=== PATIENT | female | born 1985 | race Caucasian/White ===

== ENCOUNTER 2016-11-17 08:28 | Inpatient (IN) | payer OTHER ==
[2016-11-17] VITALS (10 sets, daily range): BP systolic 107–126; BP diastolic 53–78
[~2016-11-17] VITALS: Ht 162.6 cm; Wt 80.0 kg
[2016-11-17] MEDS ORDERED: PRENTAB9 PO (08:33)
[2016-11-17] MEDS ORDERED: LACTATED RINGER'S 1000 ML IV STA (09:32)
[2016-11-17 10:00] LABS: MEAN CORPUSCULAR HEMOGLOBIN 32.8 pg (27.0-33.0); MEAN CORPUSCULAR HGB CONC 35.4 g/dl (32.0-36.5); MEAN CORPUSCULAR VOLUME 92.4 fl (80.0-96.0); WHITE BLOOD COUNT 16.6 K/mm3 (4.0-10.0)
--- NOTE | 2016-11-17 10:02 | HPEPDOC ---
Obstetrical History & Physical General Date of Admission November 17, 2016 at 08:28 History of Present Illness 31 y/o at 41+2 with reg ctx's last 3-4 hrs. No LOF or signif VB. Pos FM throughout. Chief Complaint: Contractions, term Information Provided By: Patient Care Care: Good Care Dating Final EDC by: LMP, 1st trimester (US), 2nd trimester (US) Antepartum Course Diagnos(e)s rh neg, rhogam received JUL Past Medical History Past Obstetrical History : Past Obstetrical History: Multigravida Type of Delivery: Spontaneous Vaginal Del. Sex of : Female (7 lb 9 oz) [employer] History: No pertinent history Past Medical History Medical History PP depression, stable now and throughout Surgical History: [place] teeth Family History Significant Family History: No pertinent family hx Social History Marital Status: Family situation: Spouse/partner home Psychosocial History: No pertinent psych hx * Smoker: non-smoker Alcohol: Denies Drugs: denies Abuse Violence Screening Have you been hit/kicked/slapp: No Have you been sexually assault: No Imunizations Tdap status: current Influenza Status: current Allergies Coded Allergies: No Known Allergies (Unverified , 11/17/16) Medications Scheduled Multivitamins/ ( 27-0.8 mg) 1 Tab Tab, 1 TAB PO DAILY Physical Examination Physical Examination GENERAL: Alert and oriented times three. BREAST: . ABDOMEN: Gravid and non-tender to touch. EFW 3200 gm FETUS:vertex (VTX) by sterile vaginal examination, 6/90/0, well applied EXTREMITIES: No edema. Vital Signs/I&O Vital Signs Date Time Temp Pulse Resp B/P (MAP) Pulse Ox O2 Delivery O2 Flow Rate FiO2 11/17/16 08:42 98.4 93 20 118/72 (87) Laboratory Data 24H LABS Laboratory Tests 2 11/17/16 08:35: Serology Scanned Report Hepatitis B Testing Urine Culture: No Growth Pertinent Laboratoy Data Blood Type: A- RBC Antibody Screen: Negative HIV: Negative Hepatitis B: Negative Hepatitis C: Unknown Rapid Plasma Reagin: Nonreactive Rubella: Immune Varicella: Immune Chlamydia/Gonorrhea: Negative Group B Streptococcus: Negative Quad Screen Test: Unknown (Neg [place], Neg MSAFP) Cystic Fibrosis: Negative Anatomy Ultrasound Placenta Location: Anterior Normal Anatomy: Yes Placenta Previa: No Estimated Weight (grams): 3200 Vaginal Examination Dilation: 6 cm Effacement: 80+% Station: 0 Cervical Consistency: Soft Cervical Position: Anterior Presentation: Cephalic presentation Assessment Variability: Moderate Accelerations: Positive Decelerations: None Tocometer Contractions: Yes Frequency: regular Duration: greater than 60 seconds Assessment/Plan Assessment Active labor at 41+2 Plan Admit and orient. Supervisor Core Drilling and consent. Diet: clears Group B Streptococcus (GBS) neg Labs and intravenous (IV) per unit protocol. Lactated Ringers (LR): Bolus 500 ml Anticipate normal spontaneous delivery () C-S as appropriate. SESSIONS,ELI Melgar MD November 17, 2016 10:02
--- NOTE | 2016-11-17 12:51 | IPNPDOC ---
Text Note Date of Service The patient was seen on 11/17/16. NOTE Pain controlled well, no epidural NST Cat 1, int't Cx 8-9/C/0, well applied, BBOW, desires no AROM yet recheck 2 hrs, sooner prn Sessions VS,Rosalee, I+O VS, [place], I+O Laboratory Tests 11/17/16 09:49 Red Blood Count 3.85 L, Mean Corpuscular Volume 92.4, Mean Corpuscular Hemoglobin 32.8, Mean Corpuscular Hemoglobin Concent 35.4, Red Cell Distribution Width 13.0 Vital Signs Date Time Temp Pulse Resp B/P (MAP) Pulse Ox O2 Delivery O2 Flow Rate FiO2 11/17/16 08:42 98.4 93 20 118/72 (87) SESSIONS,ELI Melgar MD November 17, 2016 12:51
--- NOTE | 2016-11-17 15:21 | IPNPDOC ---
Text Note Date of Service The patient was seen on 11/17/16. NOTE Pain controlled well, no epidural, feeling pressure NST Cat 1 Cx 9/C/+1, well applied, AROM w clr fluid recheck 2 hrs, sooner prn Sessions VS,Rosalee, I+O VS, [place], I+O Laboratory Tests 11/17/16 09:49 Red Blood Count 3.85 L, Mean Corpuscular Volume 92.4, Mean Corpuscular Hemoglobin 32.8, Mean Corpuscular Hemoglobin Concent 35.4, Red Cell Distribution Width 13.0 Vital Signs Date Time Temp Pulse Resp B/P (MAP) Pulse Ox O2 Delivery O2 Flow Rate FiO2 11/17/16 08:42 98.4 93 20 118/72 (87) SESSIONS,ELI Melgar MD November 17, 2016 15:21
[2016-11-17] MEDS ORDERED: OXYTOCIN 30 UNITS IN 0.9% NaCl 500ML IV BAG (J2590) As Ordered ONE (15:28)
[2016-11-17] MEDS ORDERED: OXYTOCIN DRIP 30 UNITS in APPROPRIATE DILUENT 1 EA IV SCH (17:24)
[2016-11-17] MEDS ORDERED: ACETAMINOPHEN TAB 650MG DOSE (2X325MG) PO PRN (17:30)
[2016-11-17] MEDS ORDERED: RHOGAM 300 MCG (1500 IU) INJ (J2790) IM SCH (17:30)
[2016-11-17] MEDS ORDERED: METOCLOPRAMIDE INJ 10MG/2ML VIAL (J2765) IV PRN (17:30)
[2016-11-17] MEDS ORDERED: DIBUCAINE 1% OINTMENT 30GM TOP PRN (17:30)
[2016-11-17] MEDS ORDERED: MEASLES,MUMPS,RUBELLA VACCINE INJ (MMR-II) (90707) SC SCH (17:30)
[2016-11-17] MEDS ORDERED: LIDOCAINE 1% MDV INJ 50 ML VIAL SC ONE (17:30)
[2016-11-17] MEDS: IBUPROFEN 800 MG TAB PO PRN (17:59)
--- NOTE | 2016-11-17 18:29 | DNPDOC ---
[facility] Delivery Note Delivery Note DATE OF DELIVERY: November 17, 2016 at 08:28 PREDELIVERY DIAGNOSIS: 41 2/7 weeks' gestation and labor. POST DELIVERY DIAGNOSIS: Delivered. PROCEDURE: Spontaneous vaginal delivery FOUR H AGENT: Dr. Maza ANESTHESIA: none ESTIMATED BLOOD LOSS: 300 mL. FINDINGS: 4142gm, 9 pound 2ounce male infant, Score 9/9 DELIVERY SUMMARY: Hands and knees, crowned, excellent effort, no delay of the vtx or the ant/post shoulder. Good tone and cry. Mother to back, infant to abdomen. When cord stopped pulsing, C/C by FOB. Cord blood. Placenta intact with slight traction and fundal massage. Small skin only 1st degr perineal lac repaired with 3-0 vicryl. Good cosmesis/hemostasis. Uncomplicated. ELI MAZA MD November 17, 2016 18:29
[2016-11-17] MEDS: DOCUSATE SODIUM 100 MG CAP PO SCH (21:18)
[2016-11-18 06:47] VITALS: BP 107/60
--- NOTE | 2016-11-18 07:03 | IPNPDOC ---
Text Note Date of Service The patient was seen on 11/18/16. NOTE PPD1 prog note States feeling well, no complaints. No heavy VB. Pain controlled. Voiding, ambulatory. Bonding well and brst feeding. VSSAF CTAB RRR Ut at U-2, firm Ext no CCE a/p: Doing well. Likely d/c tomorrow AM Sessions VS,Rosalee, I+O VS, [place] I+O Laboratory Tests 11/17/16 09:49 Red Blood Count 3.85 L, Mean Corpuscular Volume 92.4, Mean Corpuscular Hemoglobin 32.8, Mean Corpuscular Hemoglobin Concent 35.4, Red Cell Distribution Width 13.0 Vital Signs Date Time Temp Pulse Resp B/P (MAP) Pulse Ox O2 Delivery O2 Flow Rate FiO2 11/18/16 06:47 97.6 80 18 107/60 (76) I&O- Last 24 Hours up to 6 AM 11/18/16 06:00 Output Total 1100 ml Balance -1100 ml SESSIONS,ELI Melgar MD November 18, 2016 07:03
--- NOTE | 2016-11-18 07:16 | DS.PDOC ---
Discharge Summary General Date of Admission November 17, 2016 at 08:28 Date of Discharge [id number] Discharge Summary PROCEDURES PERFORMED DURING STAY: spontaneous vaginal delivery ADMITTING DIAGNOSES: Labor DISCHARGE DIAGNOSES: 1. Healthy male HOSPITAL COURSE: Admitted in active labor. Underwent an uncomplicated delivery. See delivery note. DISCHARGE MEDICATIONS: Motrin, Dibucaine, Colace, Tylenol, Lanolin, Dibucaine ointment Physical exam: see note from this morning LABORATORY DATA: Please see below. ACTIVITY: as tolerated. Nothing in vagina for 6 weeks. No bathing for 2 weeks , shower only. DIET: regular DISPOSITION:stable TIME SPENT ON DISCHARGE: Greater than 15 minutes. Sessions Vital Signs/I&Os Vital Signs Date Time Temp Pulse Resp B/P (MAP) Pulse Ox O2 Delivery O2 Flow Rate FiO2 11/18/16 06:47 97.6 80 18 107/60 (76) I&O- Last 24 Hours up to 6 AM 11/18/16 05:59 Output Total 1100 ml Balance -1100 ml Laboratory Data Labs 24H Laboratory Tests 2 11/17/16 08:35: Serology Scanned Report Hepatitis B Testing 11/17/16 09:49: CBC/BMP Laboratory Tests 11/17/16 09:49 Red Blood Count 3.85 L, Mean Corpuscular Volume 92.4, Mean Corpuscular Hemoglobin 32.8, Mean Corpuscular Hemoglobin Concent 35.4, Red Cell Distribution Width 13.0 Discharge Medications Scheduled Multivitamins/ ( 27-0.8 mg) 1 Tab Tab, 1 TAB PO DAILY, (Reported ) Allergies Coded Allergies: No Known Allergies (Unverified , 11/17/16) SESSIONSELI MD November 18, 2016 07:16
[2016-11-18] MEDS: IBUPROFEN 800 MG TAB PO PRN (07:28)
[2016-11-18] MEDS: DOCUSATE SODIUM 100 MG CAP PO SCH (07:28)
[2016-11-18] MEDS ORDERED: COLA100C3 PO (08:14)
[2016-11-18] MEDS ORDERED: IBUP-1114 PO (08:16)
[2016-11-18] MEDS ORDERED: ACET50TA PO (08:16)
[2016-11-18] MEDS ORDERED: NUPE1OIN2 TOP (08:17)
[2016-11-18] MEDS ORDERED: PRENATAL VITAMIN TAB PO SCH (09:00)
== END 2016-11-18 16:45 | disposition home or self-care (01) | DRG 775 ==
LOC: M LDI 08:28 → M OBS 18:49
PROVIDERS: ADMIT Obstetrics & Gynecology; ATTEND Obstetrics & Gynecology
PROC: 10E0XZZ Delivery of Products of Conception, External Approach (ICD-10-PCS; principal; 2016-11-17)
PROC: 0HQ9XZZ Repair Perineum Skin, External Approach (ICD-10-PCS; 2016-11-17)
DX: O48.0 Post-term pregnancy (principal); Z37.0 Single live birth; Z3A.41 41 weeks gestation of pregnancy; O70.0 First degree perineal laceration during delivery